=== PATIENT | male | born 1930 | race Caucasian/White ===

== ENCOUNTER 2017-07-29 10:15 | Inpatient (IN) | payer MEDICARE, MEDICAID ==
[2017-07-29] VITALS (18 sets, daily range): BP systolic 143–195; BP diastolic 78–109
[~2017-07-29] VITALS: Ht 172.7 cm; Wt 65.0 kg
--- NOTE | 2017-07-29 10:15 | NUR ---
BB CG VIA FAMILY CAR RT SIDED WEAKNESS SINCE YESTERDAY, NAD NOTED, VSS, BREATHING UNLABRED. EKG DONE, PUT ON HOSPITAL GOWN AND MONITOR IV OBTAIN, BLOOD SAMPLE SENT TO LAB MD AT BEDSIDE.
--- NOTE | 2017-07-29 10:20 | NUR ---
PT TO CTSCAN, XRAY
[2017-07-29] MEDS ORDERED: IOHEXOL-350 100 ML VIAL IV ONE ×2 (10:39→10:48)
[2017-07-29] MEDS ORDERED: IV NS 0.9% 250 ML IV ONE (10:39)
[2017-07-29] MEDS ORDERED: CT SWABBABLE VALVE TRANS SET 1 EA INFUS.SET MC ONE (10:39)
--- NOTE | 2017-07-29 10:43 | NUR ---
SPOKE WITH PATIENT'S DAUGHTER HELEN SHE STATES THAT THE LAST TIME SHE SAW HER FATHER WAS YESTEDAY AND GAVE PHONE NUMBER TO OLIMPIA MARQUIS [phone] OLIMPIA STATES THE LAST TIME HE WAS SEEN WELL WAS 1999 YESTERDAY
[2017-07-29 10:48] LABS: BASOPHILS # (AUTO) 0.1 /CMM (0.0-0.2); BASOPHILS % (AUTO) 0.8 % (0.0-2.0); EOSINOPHILS # (AUTO) 0.2 /CMM (0.0-0.7); EOSINOPHILS % (AUTO) 2.3 % (0.0-6.0); HEMATOCRIT 39 % (39-51); HEMOGLOBIN 12.9 g/dL (13.5-17.5); LYMPHOCYTES # (AUTO) 1.4 /CMM (0.8-4.8); LYMPHOCYTES % (AUTO) 15.1 % (20.0-44.0); MEAN CORPUSCULAR HEMOGLOBIN 30 PG (26.0-33.0); MEAN CORPUSCULAR HGB CONC 33 g/dl (31.0-36.0); MEAN CORPUSCULAR VOLUME 89 fL (80-96); MONOCYTES # (AUTO) 1.1 /CMM (0.1-1.30); MONOCYTES % (AUTO) 11.2 % (2.0-12.0); NEUTROPHILS # (AUTO) 6.7 /CMM (1.8-8.9); NEUTROPHILS % (AUTO) 70.6 % (43.0-81.0); PLATELET COUNT (AUTO) 189 /CMM (150-450); RDW COEFFICIENT OF VARIATION 14.6 (11.5-15.0); RED BLOOD CELL COUNT(AUTO) 4.35 MIL/uL (4.5-6.0); WHITE BLOOD COUNT (AUTO) 9.4 K/uL (4.3-11.0)
[2017-07-29 11:00] LABS: ALANINE AMINOTRANSFERASE 18 U/L (12-78); ALBUMIN 3.7 g/dL (3.4-5.0); ALKALINE PHOSPHATASE 103 U/L (46-116); ASPARTATE AMINOTRANSFERASE 13 U/L (15-37); BILIRUBIN,DIRECT 0.2 mg/dL (0.0-0.2); BILIRUBIN,TOTAL 1.1 mg/dL (0.2-1.0); CALCIUM, SERUM 8.8 mg/dL (8.5-10.1); CARBON DIOXIDE 26 mmol/L (21-32); CHLORIDE 103 mmol/L (98-107); CREATININE 1.5 mg/dL (0.6-1.3); GLUCOSE 111 mg/dL (74-106); POTASSIUM 3.8 mmol/L (3.5-5.1); SODIUM SERUM 137 mmol/L (136-145); TOTAL PROTEIN, SERUM 7.6 g/dL (6.4-8.2); UREA NITROGEN, BLOOD 14 mg/dL (7-18)
[2017-07-29 11:01] LABS: INR 0.98 (0.87-1.13); PROTHROMBIN TIME 10.2 SECS (9.5-12.7)
[2017-07-29 11:03] LABS: TROPONIN I < 0.017 ng/mL (0.00-0.056)
[2017-07-29] MEDS ORDERED: ASPIRIN EC 325 MG TABLET.DR PO ONE ×2 (11:30→11:32)
--- NOTE | 2017-07-29 11:38 | NUR ---
CALLED DR HOOKS ANSWERING SERVICE [phone], SPOKE WITH PAMELA SHE GAVE ME DR NICOLE CELL PHONE NUMBER , CALLED AND LEFT A VOICEMAIL.
--- NOTE | 2017-07-29 11:55 | NUR ---
CALLED DR WRIGHT, ON THE PHONE WITH DR VALENTINE.
--- NOTE | 2017-07-29 12:00 | NUR ---
REPORT [facility].
--- NOTE | 2017-07-29 13:36 | NUR ---
PT TRANSPORTED TO ICU USING ACLS PROTOCOL
[2017-07-29] MEDS: ASPIRIN EC 325 MG TABLET.DR PO SCH (14:00)
[2017-07-29] MEDS ORDERED: BLOOD SUGAR DIAGNOSTIC 1 EACH STRIP IN SCH (14:00)
--- NOTE | 2017-07-29 14:34 | NUR ---
WEALTH MANAGEMENT DIRECTOR NOTE 1400: Admitted 87 y/o M patient, awake alert to name only, Pashto speaking. Unable to give other health info at this time. No respiratory distress noted. Tolerated room air. No c/o pain or any discomfort at this time. Admitted in ICU for close monitoring for stroke. NIHSS done, noted with right upper arm mild weakness. Both legs are strong. RAC g20 PIV intact. Skin assessment done, intact. SR 70's on the monitor. SBP 150's now. Swallow eval done by nursing, no S/S aspiration noted and symmetrical face when smiling. 1430: BS 132. Spoke with daughter via phone and also does not know about health info for the patient.
[2017-07-29] MEDS: ENOXAPARIN SODIUM 30 MG/0.3 ML DISP.SYRIN SQ SCH (14:50)
[2017-07-29] MEDS: SIMVASTATIN 20 MG TABLET PO SCH ×2 (14:50→21:38)
[2017-07-29 14:54] LABS: CALCIUM, SERUM 8.8 mg/dL (8.5-10.1); CARBON DIOXIDE 28 mmol/L (21-32); CHLORIDE 104 mmol/L (98-107); CREATININE 1.4 mg/dL (0.6-1.3); GLUCOSE 121 mg/dL (74-106); POTASSIUM 3.3 mmol/L (3.5-5.1); SODIUM SERUM 138 mmol/L (136-145); UREA NITROGEN, BLOOD 14 mg/dL (7-18)
[2017-07-29 15:34] LABS: ALANINE AMINOTRANSFERASE 17 U/L (12-78); ALBUMIN 3.3 g/dL (3.4-5.0); ALKALINE PHOSPHATASE 93 U/L (46-116); ASPARTATE AMINOTRANSFERASE 12 U/L (15-37); B-TYPE NATRIURETIC PEPTIDE 459 PG/ML (0-125); BILIRUBIN,TOTAL 0.8 mg/dL (0.2-1.0); THYROID STIMULATING HORMONE 1.071 uIU/mL (0.358-3.74)
[2017-07-29] MEDS: BLOOD SUGAR DIAGNOSTIC 1 EACH STRIP IN SCH (17:32)
--- NOTE | 2017-07-29 17:42 | NUR ---
COBOL ENGINEER NOTE Spoke with Dr. Lucero to report Carotid duplex, K 3.3 and SBP 150's and DBP 100's. He said he will review the chart and will given order.
--- NOTE | 2017-07-29 18:48 | NUR ---
UPHOLSTERER INSIDE NOTE 1800: Melissa visited and given update re: patient. She was asking for the patient's wallet and said it is not listed on the belongings list and might be with the person who brought to hospital. She said she will call her. 184: Granddaughter came and also asked for wallet, tried to call the friend who brought him here but said she did not get his wallet. Clarified that patient admitted without his wallet here.
--- NOTE | 2017-07-29 19:00 | NUR ---
OPERATOR ASSISTANT I CEMENTING NOTE Still awaiting Dr. Lucero's order. SBP still high. Will endorse to next shift to follow up.
--- NOTE | 2017-07-29 19:30 | NUR ---
WINDER FIXER RCD PT ALERT; ORIENTED TO SELF; ABLE TO FOLLOW COMMANDS.BLE MILD WEAKNESS. BP 184/100 PER REPORT WAITING FOR DR LEROY TO CALL BACK WITH ORDERS. CONTINUE TO MONITOR.
--- NOTE | 2017-07-29 20:00 | NUR ---
STRATEGIC BUSINESS DEVELOPMENT BP 186/[address] LEROY; PLACED CALL TO EPIC AND RCD ORDERS. CONTINUE TO MONITOR.
--- NOTE | 2017-07-29 20:30 | NUR ---
SUPERVISOR ACCOUNTING CLERKS BP 174/97 NORVASC 10 MG PO GIVEN, CONTINUE TO MONITOR.
[2017-07-29] MEDS: AMLODIPINE BESYLATE 10 MG TABLET PO SCH (20:32)
[2017-07-30] VITALS (30 sets, daily range): BP systolic 139–176; BP diastolic 67–114
--- NOTE | 2017-07-30 | NUR ---
MANAGER MED SURG PT ATTEMPTS TO GET OUT OF BED WHEN HE NEEDS TO URINATE. EDUCATED PT TO STAY IN BED HE HAS DIAPER ON; ASSISTED PT WITH URINAL. SBP 150s. CONITNUE TO MONITOR. PT DENIES PAIN. REPOSITIONED. BED ALARM ON.
[2017-07-30] MEDS: BLOOD SUGAR DIAGNOSTIC 1 EACH STRIP IN SCH ×4 (00:10→18:24)
[2017-07-30 05:08] LABS: BASOPHILS % (AUTO) 0.5 % (0.0-2.0); EOSINOPHILS # (AUTO) 0.4 /CMM (0.0-0.7); EOSINOPHILS % (AUTO) 4.6 % (0.0-6.0); HEMATOCRIT 41 % (39-51); HEMOGLOBIN 13.6 g/dL (13.5-17.5); LYMPHOCYTES # (AUTO) 1.5 /CMM (0.8-4.8); MEAN CORPUSCULAR HEMOGLOBIN 30 PG (26.0-33.0); MEAN CORPUSCULAR HGB CONC 33 g/dl (31.0-36.0); MEAN CORPUSCULAR VOLUME 89 fL (80-96); MONOCYTES # (AUTO) 0.7 /CMM (0.1-1.30); MONOCYTES % (AUTO) 8.6 % (2.0-12.0); NEUTROPHILS # (AUTO) 5.8 /CMM (1.8-8.9); NEUTROPHILS % (AUTO) 68.3 % (43.0-81.0); PLATELET COUNT (AUTO) 181 /CMM (150-450); RDW COEFFICIENT OF VARIATION 14.7 (11.5-15.0); WHITE BLOOD COUNT (AUTO) 8.5 K/uL (4.3-11.0)
[2017-07-30 05:24] LABS: CALCIUM, SERUM 8.7 mg/dL (8.5-10.1); CARBON DIOXIDE 25 mmol/L (21-32); CHLORIDE 103 mmol/L (98-107); CREATININE 1.2 mg/dL (0.6-1.3); GLUCOSE 108 mg/dL (74-106); INR 0.97 (0.87-1.13); POTASSIUM 3.7 mmol/L (3.5-5.1); PROTHROMBIN TIME 10.1 SECS (9.5-12.7); SODIUM SERUM 138 mmol/L (136-145); UREA NITROGEN, BLOOD 13 mg/dL (7-18)
[2017-07-30 05:25] LABS: CHOLESTEROL 215 mg/dL (<200); HDL CHOLESTEROL 62 mg/dL (40-60); LDL 136 mg/dL (0-99); TRIGLYCERIDES 104 mg/dL (30-150)
--- NOTE | 2017-07-30 05:46 | NUR ---
TRADE RECRUITER PT WITH MULTIPLE ATTEMPTS TO GET OUT OF BED. BED ALARM ON. NURSING CONTINUES TO MONITOR.
[2017-07-30] MEDS: ASPIRIN EC 325 MG TABLET.DR PO SCH (08:13)
[2017-07-30] MEDS: AMLODIPINE BESYLATE 10 MG TABLET PO SCH (08:13)
[2017-07-30] MEDS: ENOXAPARIN SODIUM 30 MG/0.3 ML DISP.SYRIN SQ SCH (08:14)
--- NOTE | 2017-07-30 10:53 | NUR ---
TEXTED DR. STACY FOR MRI APPROVAL.
--- NOTE | 2017-07-30 11:16 | NUR ---
PRE FABRICATOR NOTE 1030: S/E by Dr. Lucero, Assessed patient while on chair. Still with AMY weakness, with order to may transfer to Tele and MRI and MRA brain/head,. Asked patient with assistant casino shift manager at bedside. for MRI questionnaire. 1115: Spoke with Harman(daughter) consented for MRI and MRA via phone, witnessed by another nurse.
--- NOTE | 2017-07-30 12:18 | NUR ---
BRIDGE CONSTRUCTION INSPECTOR NOTE S/E by Dr. Weathers, with order to change MRA to without contrast. Spoke with MRI personnel, said about 1pm.
[2017-07-30] MEDS: IV NS 0.9% 1,000 ML IV PRN (12:44)
--- NOTE | 2017-07-30 12:44 | NUR ---
DROP FORGE OPERATOR NOTE Per Dr. Weathers, [facility], made MD aware with episodes of SBP 170's, said it's ok to have high BP up to 200's. And also will start IVF.
--- NOTE | 2017-07-30 16:19 | NUR ---
COMMISSION AUDITOR NOTE 1340: Picked up by MRI personnels, accompanied by me to MRI. 1530: Patient back from MRI, no any significant changes noted.
--- NOTE | 2017-07-30 17:45 | NUR ---
CORONARY CLINICAL SPECIALIST NOTE Spoke again with daughter, but does not know about medical history. Patient does not take any meds at home, supposedly with appt today with MD outside.
[2017-07-30] MEDS ORDERED: GADOVERSETAMIDE 2.5 MMOL/5 ML VIAL IJ ONE (19:14)
--- NOTE | 2017-07-30 19:30 | NUR ---
CHUCK TENDER RCD PT AWAKE; ABLE TO FOLLOW SIMPLE COMMANDS. NSR ON MONITOR. ON ROON AIR. LFA 20 GW/ NS @ 75 ML/HR. PENDING MRI RESULTS.
--- NOTE | 2017-07-30 20:30 | NUR ---
ARMATURE REPAIRER PT HAS ATTEMPTED TO GET OUT OF BED MULTIPLE TIMES. PT HAS ATTEMPTED TO KICK STAFF. PT NOT PROPERLY ANSWERING QUESTIONS OR FOLLOWING INSTRUCTIONS ONLY REPEATS WHAT STAFF SAYS. BL SOFT WRIST RESTRAINTS PLACED FOR SAFETY. BED ALARM ON. NURSING AT BEDSIDE. CONTINUE TO MONITOR.
--- NOTE | 2017-07-30 20:40 | NUR ---
INDUSTRIAL CONTROLLER PT REMOVED BL SOFT WRIST RESTRAINTS. CONTINUE TO MONITOR.
--- NOTE | 2017-07-30 21:00 | NUR ---
ORGANISATION AND METHODS ANALYST PT CALM AND COOPERATIVE AT THIS TIME. CONTINUE TO MONITOR.
--- NOTE | 2017-07-30 21:20 | NUR ---
HYDROLOGY TECHNICIAN MRI BRAIN RESULTS RELAYED TO Papito JOHNS NP AND DR DIAZ; NO NEW ORDERS RECEIVED. 1. Several foci of acute/recent infarcts involving bilateral centrum semiovale and left porter radiata white matter. 2. No acute intracranial hemorrhage. No gross intracranial mass or enhancing abnormality. 3. Moderate chronic small vessel ischemic changes. 4. 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 5. Mild to moderate generalized cerebral volume loss. A call report was made and above findings were discussed and acknowledged by patient's nurse RN Sae on 07/30/2017 8:57 PM to relay to Dr. RAD Larry
[2017-07-30] MEDS: SIMVASTATIN 20 MG TABLET PO SCH (22:21)
[2017-07-31] VITALS (16 sets, daily range): BP systolic 125–177; BP diastolic 50–109
--- NOTE | 2017-07-31 | NUR ---
REVIEW RN PT CONTINUES TO ATTEMPT TO GET OUT BED AND REMOVE EQUIPMENT HOWEVER HE FOLLOWS COMMANDS TO STAY IN BED AND NOT REMOVE ANYTHING AT THIS TIME.
--- NOTE | 2017-07-31 01:00 | NUR ---
FISHER TRAWL NET PT SLEEPING AT THIS TIME.
--- NOTE | 2017-07-31 06:00 | NUR ---
MOLD MAINTENANCE TECHNICIAN PT CALM AND COOPERATIVE. FOLLOWS INSTRUCTIONS. BL SOFT WRIST RESTRAINTS PLACED. CONTINUE TO MONITOR.
[2017-07-31] MEDS: IV NS 0.9% 1,000 ML IV PRN (06:07)
[2017-07-31] MEDS: BLOOD SUGAR DIAGNOSTIC 1 EACH STRIP IN SCH ×4 (06:07→17:17)
[2017-07-31] MEDS: ASPIRIN EC 325 MG TABLET.DR PO SCH (08:27)
[2017-07-31] MEDS: ENOXAPARIN SODIUM 30 MG/0.3 ML DISP.SYRIN SQ SCH (08:30)
--- NOTE | 2017-07-31 09:10 | NUR ---
PUBLIC RELATIONS SUPERVISOR NOTE 0720: Received patient awake, alert but noted with confusion. Room air tolerated. With PIV intact, IVF infusing as ordered. Per previous nurse, with episode of combativeness last night, obtained order for 1:1 sitter. With sitter at bedside, calm at this time. Still noted with not full AROM on the right arm, Will continue PT, OT and ST. Still awaiting room for tele. 0830: Patient tolerated diet well. 0900: No any significant changes noted at this time. Will continue to monitor.
--- NOTE | 2017-07-31 15:14 | NUR ---
EDUCATION ADMINISTRATOR NOTE 1330: Transferred patient to Tele via wheelchair, with sitter. All belongings with the patient. No any significant changes. 1500: S/E by Dr. Stauffer, with order of JULIANE on Saturday, spoke with Harman, daughter given consent also for anesthesia, witnessed by another nurse.
--- NOTE | 2017-07-31 17:15 | NUR ---
NEUROSURGEON NOTE CN aware re: JULIANE on Saturday, spoke with nurse sup. Called Radiology and spoke with Riley, made aware technical stenographer needed for procedure on Saturday. will endorse to be NPO post midnight tomorrow.
--- NOTE | 2017-07-31 18:19 | NUR ---
DIRECTOR OF BRAND MARKETING NOTE S/E by Dr. Mathew, with order to do CT neck with contrast, Mishel visited and given consent. MD said he will call daughter to discuss plan of care.
[2017-07-31] MEDS ORDERED: SIMVASTATIN 20 MG TABLET ONE (19:57)
--- NOTE | 2017-07-31 20:00 | NUR ---
telecommunications linesworker notes received pts on bed awake and responsive , with confusion , on tele sr on the monitor , no sob no distress noted , v/s stable/ afebrile on r/a sating 98% on room air.on 1:1 sitter at bedside .all needs attended too call light within reach kept pts clean dry and comfortable , hob elevated at all times for aspiration precaution. turn and reposition q2 hrs and prn . will continue to monitor pts.
[2017-07-31] MEDS: SIMVASTATIN 20 MG TABLET PO SCH (21:17)
[2017-08-01] VITALS: BP 156/78
--- NOTE | 2017-08-01 | NUR ---
television technician notes pts npo post midnight maintained, remained on 1:1 sitter , pts sleeping in comfortably , continue on ivf of ns at 75cc/hr infusing well. v/s stable afebrile , pts for ct neck with contrast in am ,consent done,will continue to monitor pts.
[2017-08-01] MEDS: BLOOD SUGAR DIAGNOSTIC 1 EACH STRIP IN SCH ×5 (00:20→23:51)
[2017-08-01 04:00] VITALS: BP 148/72
[2017-08-01] MEDS: IV NS 0.9% 1,000 ML IV PRN ×2 (05:04→17:30)
--- NOTE | 2017-08-01 05:53 | NUR ---
tele rs notes pts for david on 08/02/17 at 8am npo post mn tonite consent for david and anesthesia obtained . will endorse to rn day shift for continuity of care.
--- NOTE | 2017-08-01 06:57 | NUR ---
telephone answering service operator notes blood sugar at 6am is 83 mg/dl no coverage given , pts remains on ivf ns at 75cc/hr infusing well . pts remains on npo and 1:1 sitter at bedside , will endorse to rn day shift for continuity of care.
--- NOTE | 2017-08-01 07:00 | NUR ---
PEST LOCATOR NOTE: RECEIVED PT AWAKE IN BED, VIETNAMESE SPEAKING, A&OX1 WITH CONFUSION, DENIES PAIN, ABLE TO FOLLOW SIMPLE COMMANDS. ON TELE MONITOR WITH SR IN THE HIGH 60S. ON RA, RESPIRATIONS EVEN AND UNLABORED WITH NO SOB NOTED. YESSI IV RUNNING WITH NS AT 75CC/HR. BED LOW, LOCKED WITH CALL LIGHT WITHIN REACH. 1:1 CARE WITH PATIENT FOR SAFETY. WILL CONT TO MONITOR.
[2017-08-01 08:00] VITALS: BP 149/82
--- NOTE | 2017-08-01 10:25 | NUR ---
MANAGEMENT SPECIALIST NOTE: DAUGHTER CALLED AND PROVIDED PHONE NUMBER: [phone].
--- NOTE | 2017-08-01 10:38 | NUR ---
CYLINDRICAL MIXER NOTE: STROKE EDUCATION PACKET PROVIDED TO PATIENT.
[2017-08-01 12:00] VITALS: BP 155/75
--- NOTE | 2017-08-01 12:05 | NUR ---
HATCH SUPERVISOR NOTE: MESSAGE LEFT FOR DR. VINES TO RETURN CALL TO CLARIFY ORDER PER RADIOLOGY REQUEST. DR. VINES'S OFFICE: [phone].
--- NOTE | 2017-08-01 12:35 | NUR ---
NEED CLARIFICATION OF ORDER . NURSE TO CALL DR FRANKIE GIRON IF ORDER IS A CTA SINCE THE AOI ARE THE CAROTOIDS, OR REG VENOUS CT OF [facility].
--- NOTE | 2017-08-01 13:41 | NUR ---
DRUGLESS DOCTOR NOTE: ORDER CLARIFIED PER CHARGE NURSE SOON. NEW ORDER FOR CTA CAROTID SUBMITTED. LEFT MESSAGE WITH CT EXT 0112 TO CONFIRM.
[2017-08-01] MEDS ORDERED: IOHEXOL-350 100 ML VIAL IV ONE (13:56)
[2017-08-01] MEDS ORDERED: CT SWABBABLE VALVE TRANS SET 1 EA INFUS.SET MC ONE (13:56)
[2017-08-01] MEDS: ASPIRIN EC 325 MG TABLET.DR PO SCH (15:02)
[2017-08-01] MEDS: ENOXAPARIN SODIUM 30 MG/0.3 ML DISP.SYRIN SQ SCH (15:05)
[2017-08-01 16:00] VITALS: BP_SYST 155; BP_SYST 156; BP_DIAS 98
--- NOTE | 2017-08-01 18:30 | NUR ---
RIPSAW MATCHER NOTE: NO ACUTE CHANGES DURING SHIFT. PATIENT REMAINED A&OX1 WITH CONFUSION. YESSI IV PATENT AND INTACT WITH NS RUNNING AT 75CC/HR. TELE MONITOR SR IN THE 80S. 1:1 SITTER AT BEDSIDE FOR SAFETY. ORDERS CARRIED OUT. BED LOW, LOCKED WITH CALL LIGHT WITHIN REACH. WILL ENDORSE TO EMERGENCY MANAGEMENT SYSTEM DIRECTOR NURSE FOR JUDSON.
[2017-08-01 20:00] VITALS: BP 146/84
--- NOTE | 2017-08-01 20:38 | NUR ---
TELE INITIAL RN NOTE: RECEIVED PT FROM AM SHIFT,NO ACUTE CHANGES DURING SHIFT. PATIENT REMAINED A&OX1 WITH CONFUSION. YESSI IV PATENT AND INTACT WITH NS RUNNING AT 75CC/HR. TELE MONITOR SR IN THE 80S. 1:1 SITTER, STAYED BY PT BED SIDE BECAUSE SITTER RUNNING LATE, FOR SAFETY. ALL NEEDS MET AT THIS TIME. BED LOW, LOCKED WITH CALL LIGHT WITHIN REACH. WILL ENDORSE TO GEOLOGIST PETROLEUM NURSE FOR JUDSON.
[2017-08-01] MEDS: SIMVASTATIN 20 MG TABLET PO SCH (22:22)
[2017-08-02] VITALS: BP 140/80
[2017-08-02 05:04] VITALS: BP 145/82
[2017-08-02] MEDS: BLOOD SUGAR DIAGNOSTIC 1 EACH STRIP IN SCH ×3 (05:09→17:21)
--- NOTE | 2017-08-02 06:37 | NUR ---
TELE CLOSING RN NOTE: ENDORSED PT TO AM SHIFT,NO ACUTE CHANGES DURING SHIFT. PATIENT REMAINED A&OX1 WITH CONFUSION. YESSI IV PATENT AND INTACT WITH NS RUNNING AT 75CC/HR. NPO AFTER MIDNIGHT EXCEPT MEDS, JULIANE SCHEDULED IN AM, CONSENT IN CHART WELL CHECK LIST COMPLETED TELE MONITOR SR IN THE 80S. 1:1 SITTER, STAYED BY PT BED SIDE BECAUSE SITTER RUNNING LATE, FOR SAFETY. ALL NEEDS MET AT THIS TIME. BED LOW, LOCKED WITH CALL LIGHT WITHIN REACH. WILL ENDORSE TO TRAVEL ACCOMMODATIONS RATER NURSE FOR JUDSON.
--- NOTE | 2017-08-02 07:20 | NUR ---
COREMAKER PIPE OPENING NOTES RECEIVED PT FROM NIGHTSHIFT NURSE IN STABLE CONDITION. PT IS A/O X1-2 AND CONFUSED. NO SOB OR SIGNS OF DISTRESS NOTED. BREATHING IS EVEN AND UNLABORED. PT DENIES ANY PAIN AT THIS TIME. PT MADE AWARE OF PLANNED JULIANE PROCEDURE. CONSENTS IN CHART AND CHECKLIST COMPLETED BY NIGHTSHIFT NURSE. PT IS SINUS RHYTHM ON THE TELE MONITOR. IV PRESENT ON LEFT UPPER ARM 20G INFUSING NS @75ML/HR. PT IS TOLERATING INFUSION WELL. NO REDNESS OR SIGNS OF INFILTRATION NOTED. BED IN LOW LOCKED POSITION, SIDE RAILS UP X3, CALL LIGHT WITHIN REACH, BED ALARM ON, SITTER AT BEDSIDE. WILL CONTINUE TO MONITOR .
[2017-08-02 08:00] VITALS: BP 156/77
--- NOTE | 2017-08-02 09:03 | NUR ---
MEASUREMENT TECHNICIAN NOTES PER DR KOROMA, IT IS OKAY TO GIVE THE PT SCHEDULED 0900 LOVENOX AFTER JULIANE PROCEDURE
[2017-08-02] MEDS: IV NS 0.9% 1,000 ML IV PRN (09:10)
[2017-08-02] MEDS: ASPIRIN EC 325 MG TABLET.DR PO SCH (09:11)
[2017-08-02] MEDS: ENOXAPARIN SODIUM 30 MG/0.3 ML DISP.SYRIN SQ SCH (09:11)
[2017-08-02 12:00] VITALS: BP 137/85
[2017-08-02 16:00] VITALS: BP 130/78
--- NOTE | 2017-08-02 18:45 | NUR ---
MS R CLOSING NOTES PT REMAINS IN STABLE CONDITION. ALL NEEDS MET DURING SHIFT AND ORDERS CARRIED OUT ACCORDINGLY. ALL DUE NEEDS GIVEN. ALL SAFETY MEASURES REMAIN IN PLACE. SITTER AT BEDSIDE. WILL ENDORSE TO NIGHTSHIFT NURSE FOR JUDSON
[2017-08-02 20:00] VITALS: BP 139/79
--- NOTE | 2017-08-02 20:00 | NUR ---
RN NOTES PATIENT IN BED RESTING COMFORTABLY WITH 0NE ON ONE SITTER. NO DISTRESS NOTED. BREATHING EVEN AND UNLABORED AWAKE, ALRT AND RESPONSIVE.NO COMPLAINT OF PAIN OF THIS TIME. KEPT CLEAN AND DRY. WILL CONTINUE TO ENDORSE.
[2017-08-02] MEDS: SIMVASTATIN 20 MG TABLET PO SCH (22:23)
[2017-08-03] VITALS: BP 144/85
[2017-08-03] MEDS: BLOOD SUGAR DIAGNOSTIC 1 EACH STRIP IN SCH ×4 (00:21→18:33)
[2017-08-03] MEDS: IV NS 0.9% 1,000 ML IV PRN (00:28)
[2017-08-03 04:00] VITALS: BP 152/82
--- NOTE | 2017-08-03 07:34 | NUR ---
RN CLOSING NOTES IN BED, RESTING COMFORTABLE. NO RESPIRATORY DISTRESS OR SHORTNESS OF BREATH. BREATHING EVEN AND UNLABORED. NEEDS ATTENDED. NO SIGNIFICANT CHANGE OF CONDITION. WILL ENDORSE TO AM SHIFT FOR CONTINUITY OF CARE
[2017-08-03 08:00] VITALS: BP 160/94
--- NOTE | 2017-08-03 08:20 | NUR ---
RN OPENING NOTES RECEIVED PATIENT RESTING COMFORTABLY IN BED WITH EYES CLOSED. EASILY AROUSABLE. AOX1. SITTER AT THE BED SIDE FOR SAFETY. NO ACUTE DISTRESS. RESPIRATIONS EVEN AND UNLABORED. DENIES ANY PAIN, SOB AND CP. BED LOCKED IN THE LOWEST POSITION WITH SIDE RAIL UP X2. CALL LIGHT WITHIN REACH. WILL CONTINUE TO MONITOR, ASSESS AND EDUCATE PATIENT THROUGHOUT SHIFT.
[2017-08-03] MEDS: ASPIRIN EC 325 MG TABLET.DR PO SCH (10:12)
[2017-08-03] MEDS: ENOXAPARIN SODIUM 30 MG/0.3 ML DISP.SYRIN SQ SCH (10:13)
[2017-08-03 13:00] VITALS: BP 138/76
[2017-08-03 16:00] VITALS: BP 141/80
--- NOTE | 2017-08-03 19:40 | NUR ---
RN CLOSING NOTES PATIENT RESTING COMFORTABLY IN BED. AOX1. SITTER AT THE BED SIDE FOR SAFETY. NO ACUTE DISTRESS. RESPIRATIONS EVEN AND UNLABORED. DENIES ANY PAIN, SOB AND CP. CONDITION UNCHANGED. ALL NEEDS MET. ALL MEDS GIVEN ASS APPROPRIATE. ENDORSED TO NIGHT RN FOR JUDSON.
[2017-08-03 20:00] VITALS: BP_SYST 103; BP_SYST 146; BP_DIAS 68; BP_DIAS 94
--- NOTE | 2017-08-03 20:00 | NUR ---
RN NOTES RECEIVED PATIENT IN BED, AWAKE WITH SITTER AT BEDSIDE. NO RESPIRATORY DISTRESS OR SHORTNESS OF BREATH. BREATHING AND UNLABORED. ALERT AND ORIENTED, VERBALLY ABLE TO COMMUNICATE NEEDS. RIGHT FEMORAL CENTRAL LINE IN PLACE, PATENT. NS 75ML/HR TOLERATING WELL. FC PATENT AND INTACT DRAINING CLEAR, YELLOW WITH NO FOUL ODOR URINE. WILL CONTINUE TO MONITOR.
[2017-08-03] MEDS: SIMVASTATIN 20 MG TABLET PO SCH (23:00)
[2017-08-04] MEDS: BLOOD SUGAR DIAGNOSTIC 1 EACH STRIP IN SCH ×5 (00:33→23:33)
[2017-08-04] MEDS: IV NS 0.9% 1,000 ML IV PRN (03:57)
[2017-08-04 04:00] VITALS: BP 152/83
--- NOTE | 2017-08-04 06:44 | NUR ---
RN CLOSING NOTES PATIENT IN BED WITH RESPIRATORY DISTRESS NOTED. BREATHING EVEN UNLABORED. NO COMPLAINT OF PAIN OR DISCOMFORT. NO SIGNIFICANT CHANGE OF CONDITION AT THIS TIME. WILL ENDORSE TO AM SHIFT FOR CONTINUITY OF CARE.
[2017-08-04 07:31] LABS: BASOPHILS # (AUTO) 0.1 /CMM (0.0-0.2); BASOPHILS % (AUTO) 0.6 % (0.0-2.0); EOSINOPHILS # (AUTO) 0.4 /CMM (0.0-0.7); EOSINOPHILS % (AUTO) 4.8 % (0.0-6.0); HEMATOCRIT 38 % (39-51); HEMOGLOBIN 12.8 g/dL (13.5-17.5); LYMPHOCYTES # (AUTO) 1.5 /CMM (0.8-4.8); MEAN CORPUSCULAR HEMOGLOBIN 30 PG (26.0-33.0); MEAN CORPUSCULAR HGB CONC 34 g/dl (31.0-36.0); MEAN CORPUSCULAR VOLUME 88 fL (80-96); MONOCYTES # (AUTO) 1.1 /CMM (0.1-1.30); NEUTROPHILS # (AUTO) 5.8 /CMM (1.8-8.9); NEUTROPHILS % (AUTO) 65.6 % (43.0-81.0); PLATELET COUNT (AUTO) 200 /CMM (150-450); RED BLOOD CELL COUNT(AUTO) 4.28 MIL/uL (4.5-6.0); WHITE BLOOD COUNT (AUTO) 8.9 K/uL (4.3-11.0)
[2017-08-04 07:44] LABS: CALCIUM, SERUM 8.6 mg/dL (8.5-10.1); CARBON DIOXIDE 25 mmol/L (21-32); CHLORIDE 105 mmol/L (98-107); CREATININE 1.2 mg/dL (0.6-1.3); GLUCOSE 92 mg/dL (74-106); PHOSPHORUS 3.2 mg/dL (2.5-4.9); POTASSIUM 4.1 mmol/L (3.5-5.1); SODIUM SERUM 140 mmol/L (136-145); UREA NITROGEN, BLOOD 18 mg/dL (7-18)
[2017-08-04 08:00] VITALS: BP 147/80
[2017-08-04] MEDS: ASPIRIN EC 325 MG TABLET.DR PO SCH (11:16)
[2017-08-04] MEDS: ENOXAPARIN SODIUM 30 MG/0.3 ML DISP.SYRIN SQ SCH (11:31)
[2017-08-04 16:00] VITALS: BP 161/94
--- NOTE | 2017-08-04 19:30 | NUR ---
Received patient in the bed.No unusual signs or symptoms observed or reported,no signs of discomfort or distress.Sitter at bedside;patient is said to be fall precaution.No problems.Scheduled for a procedure in AM.Ordered NPO after NOC with NS to be started at 75 cc/hr.
[2017-08-04 20:00] VITALS: BP 156/89
[2017-08-04] MEDS: SIMVASTATIN 20 MG TABLET PO SCH (22:24)
[2017-08-05] VITALS (22 sets, daily range): BP systolic 148–206; BP diastolic 77–125
--- NOTE | 2017-08-05 | NUR ---
Patient is now NPO and IVF started,no problems
--- NOTE | 2017-08-05 04:10 | NUR ---
Relieved sitter for a few minutes break,no problems
--- NOTE | 2017-08-05 04:40 | NUR ---
Patient became agitated,pulled out his iv and left room for hallway with MILK OF LIME SLAKER walking beside patient.Put him in a wheelchair and have him sit in-front of nurse's station.Patient is calm for now.
[2017-08-05 04:57] LABS: APPEARANCE,URINE CLEAR (CLEAR); BILIRUBIN,URINE NEGATIVE (NEGATIVE); BLOOD, URINE NEGATIVE Ery/uL (NEGATIVE); KETONES,URINE NEGATIVE (NEGATIVE); LEUKOCYTE ESTERASE ,URINE NEGATIVE (NEGATIVE); NITRITE, URINE NEGATIVE (NEGATIVE); PH,URINE 6.5 (5.0-8.0); PROTEIN,URINE NEGATIVE (NEGATIVE); UGLUCOSE NEGATIVE (NEGATIVE); UROBILINOGEN,URINE 0.2 EU/dL (0.2)
[2017-08-05 04:58] LABS: COLOR,URINE Light yellow (YELLOW)
[2017-08-05] MEDS: BLOOD SUGAR DIAGNOSTIC 1 EACH STRIP IN SCH ×3 (06:00→18:18)
[2017-08-05 06:39] LABS: BASOPHILS % (AUTO) 0.5 % (0.0-2.0); EOSINOPHILS # (AUTO) 0.3 /CMM (0.0-0.7); EOSINOPHILS % (AUTO) 3.6 % (0.0-6.0); HEMATOCRIT 43 % (39-51); HEMOGLOBIN 14.2 g/dL (13.5-17.5); LYMPHOCYTES # (AUTO) 1.2 /CMM (0.8-4.8); LYMPHOCYTES % (AUTO) 14.2 % (20.0-44.0); MEAN CORPUSCULAR HEMOGLOBIN 30 PG (26.0-33.0); MEAN CORPUSCULAR HGB CONC 33 g/dl (31.0-36.0); MEAN CORPUSCULAR VOLUME 89 fL (80-96); MONOCYTES # (AUTO) 0.9 /CMM (0.1-1.30); MONOCYTES % (AUTO) 10.5 % (2.0-12.0); NEUTROPHILS # (AUTO) 6.2 /CMM (1.8-8.9); NEUTROPHILS % (AUTO) 71.2 % (43.0-81.0); PLATELET COUNT (AUTO) 245 /CMM (150-450); RDW COEFFICIENT OF VARIATION 14.1 (11.5-15.0); RED BLOOD CELL COUNT(AUTO) 4.79 MIL/uL (4.5-6.0); WHITE BLOOD COUNT (AUTO) 8.7 K/uL (4.3-11.0)
--- NOTE | 2017-08-05 07:01 | NUR ---
BS 107
[2017-08-05 07:02] LABS: CALCIUM, SERUM 9.2 mg/dL (8.5-10.1); CARBON DIOXIDE 30 mmol/L (21-32); CHLORIDE 102 mmol/L (98-107); CREATININE 1.4 mg/dL (0.6-1.3); GLUCOSE 109 mg/dL (74-106); MAGNESIUM 1.9 mg/dL (1.8-2.4); PHOSPHORUS 3.2 mg/dL (2.5-4.9); SODIUM SERUM 139 mmol/L (136-145); UREA NITROGEN, BLOOD 20 mg/dL (7-18)
[2017-08-05 07:10] LABS: INR 0.96 (0.87-1.13)
[2017-08-05] MEDS: ASPIRIN EC 325 MG TABLET.DR PO SCH (08:41)
[2017-08-05] MEDS: ENOXAPARIN SODIUM 30 MG/0.3 ML DISP.SYRIN SQ SCH (08:46)
[2017-08-05] MEDS ORDERED: ROCURONIUM BROMIDE 50 MG/5 ML ONE (10:59)
[2017-08-05] MEDS ORDERED: FENTANYL PF 100MCG/2ML AMPUL ONE ×2 (10:59→12:02)
[2017-08-05] MEDS ORDERED: SEVOFLURANE 250 ML BOTTLE IH ONE (11:07)
[2017-08-05] MEDS ORDERED: DESFLURANE 240 ML BOTTLE IH ONE (11:07)
--- NOTE | 2017-08-05 11:15 | NUR ---
RN NOTE PT OUT FOR SURGERY.
[2017-08-05] MEDS ORDERED: LIDOCAINE 1% INJ 50 ML MDV IJ ONE (11:59)
[2017-08-05] MEDS ORDERED: HEPARIN SODIUM, PORCINE 1,000 UNIT/ML VIAL ONE (12:20)
[2017-08-05] MEDS ORDERED: GELATIN SPONGE,ABSORBABLE 1 EA SPONGE TP ONE (13:08)
[2017-08-05] MEDS ORDERED: THROMBIN (BOVINE) 5,000 UNITS VIAL TP ONE (13:08)
[2017-08-05] MEDS ORDERED: CELLULOSE,OXIDIZED 1 PKT EACH MC ONE (13:48)
[2017-08-05] MEDS ORDERED: BUPIVACAINE 0.25% 75 MG/30 ML VIAL ONE (14:44)
[2017-08-05] MEDS: MORPHINE SULFATE INJ 2 MG/ML DISP.SYRIN IM PRN ×2 (15:29→19:40)
[2017-08-05] MEDS: IV NS 0.9% 1,000 ML IV PRN (16:05)
[2017-08-05] MEDS ORDERED: hydrALAZINE HCL IV 20 MG VIAL IV PRN (17:00)
[2017-08-05] MEDS: CARVEDILOL 6.25 MG TABLET PO SCH (17:42)
[2017-08-05] MEDS ORDERED: NITROGLYCERIN 0.4 MG/TAB BOTTLE SL PRN (20:00)
--- NOTE | 2017-08-05 21:00 | NUR ---
DR VINES AT BEDSIDE TO ASSESS PT, THERE IS SWELLING AT THE NECK SITE, DR VINES SAYS PLACE ICE PACK ON NECK
[2017-08-05] MEDS: SIMVASTATIN 20 MG TABLET PO SCH (21:54)
[2017-08-06] VITALS (27 sets, daily range): BP systolic 112–166; BP diastolic 59–95
[2017-08-06] MEDS: BLOOD SUGAR DIAGNOSTIC 1 EACH STRIP IN SCH ×4 (00:35→18:43)
[2017-08-06 05:04] LABS: HEMATOCRIT 39 % (39-51); HEMOGLOBIN 12.8 g/dL (13.5-17.5); LYMPHOCYTES # (AUTO) 0.8 /CMM (0.8-4.8); LYMPHOCYTES % (AUTO) 5.2 % (20.0-44.0); MEAN CORPUSCULAR HEMOGLOBIN 30 PG (26.0-33.0); MEAN CORPUSCULAR HGB CONC 33 g/dl (31.0-36.0); MEAN CORPUSCULAR VOLUME 90 fL (80-96); MONOCYTES # (AUTO) 0.9 /CMM (0.1-1.30); NEUTROPHILS # (AUTO) 12.9 /CMM (1.8-8.9); NEUTROPHILS % (AUTO) 88.8 % (43.0-81.0); PLATELET COUNT (AUTO) 264 /CMM (150-450); RDW COEFFICIENT OF VARIATION 14.2 (11.5-15.0); RED BLOOD CELL COUNT(AUTO) 4.33 MIL/uL (4.5-6.0); WHITE BLOOD COUNT (AUTO) 14.6 K/uL (4.3-11.0)
[2017-08-06 05:23] LABS: CALCIUM, SERUM 8.7 mg/dL (8.5-10.1); CARBON DIOXIDE 21 mmol/L (21-32); CHLORIDE 105 mmol/L (98-107); CREATININE 1.4 mg/dL (0.6-1.3); GLUCOSE 136 mg/dL (74-106); PHOSPHORUS 3.9 mg/dL (2.5-4.9); POTASSIUM 4.7 mmol/L (3.5-5.1); SODIUM SERUM 138 mmol/L (136-145); UREA NITROGEN, BLOOD 25 mg/dL (7-18)
--- NOTE | 2017-08-06 07:05 | NUR ---
RN INITIAL NOTES RECEIVED PT ASLEEP, EASY TO AROUSE. ON ROOM AIR. 02 SAT 96%. NO RESPIRATORY DISTRESS NOTED. NO SIGNS OF PAIN NOTED. IV LINE IN PLACE. FC IN PLACE. NO HEMATURIA NOTED. BLE ELEVATED. CALL LIGHT WITHIN REACH. ON 1:1 SITTER. PT COMFORTABLE. WILL MONITOR.
[2017-08-06] MEDS: ASPIRIN EC 325 MG TABLET.DR PO SCH (08:13)
[2017-08-06] MEDS: CARVEDILOL 6.25 MG TABLET PO SCH (08:14)
[2017-08-06] MEDS: ENOXAPARIN SODIUM 30 MG/0.3 ML DISP.SYRIN SQ SCH (08:17)
[2017-08-06] MEDS: IV NS 0.9% 1,000 ML IV PRN ×2 (09:46→22:29)
--- NOTE | 2017-08-06 10:45 | NUR ---
RN NOTES SEEN AND EXAMINED BY DR. DRAKE MARTIN. AWARE OF CURRENT LAB VALUES: WBC 14.6, HGB 12.8, HCT 39, PLATELET 264, BUN 25, CREA 1.4. SP LEFT CAROTID ENDARTERECTOMY BY DR. VINES 08/05/17. MARIKA DRAIN IN PLACE, SEROUS DRAINAGE NOTED. DENIES ANY PAIN. NO CHANGE IN LOC NOTED. MD CONLEY TO TRANSFER PT TO TELE. SMYTH (DTR) AWARE.
[2017-08-06] MEDS ORDERED: hydrALAZINE HCL 25 MG TABLET PO PRN (16:30)
--- NOTE | 2017-08-06 16:30 | NUR ---
RN NOTES PT TRANSFERRED TO ROOM 304-2. PT IN STABLE CONDITION. REPORT GIVEN TO CHRISTAL ALEXIS. TOOL OVER PT'S CARE.
--- NOTE | 2017-08-06 17:00 | NUR ---
RN NOTE RECEIVED PATIENT A/O X1/2, INDONESIAN SPEAKER, NO RESPIRATORY DISTRESS, LEFT SIDE OF NECK DRESSING AND MARIKA, PT ON F/C DRAIN YELLOW OUTPUT, PATIENT TURN AND REPOSTION SELF IN THE BED, V/S TAKEN BP -123/73, P-73, R-17, O2 97 ROOM AIR, T-97.6, 1;1 SITTER NEXT TO THE PATIENT FOR SAFETY, SKIN INTACT, SAFETY PRECAUTION MAINTAINED ALL THE TIME.
--- NOTE | 2017-08-06 18:30 | NUR ---
RN NOTE PATIENT STABLE AT THIS TIME, FAMILY NEXT TO THE PATIENT, BS-136 MG/DL, NO ACUTE DISTRESS, NEEDS ATTENDED AND ANTICIPATED, CALL LIGHT WITHIN THE PATIENT, SAFETY PRECAUTION MAINTAINED ALL THE TIME. ENDORSED ONCOMING NURSE FOR CONTINUATION OF CARE.
[2017-08-06] MEDS: CARVEDILOL 12.5 MG TABLET PO SCH (18:51)
--- NOTE | 2017-08-06 20:30 | NUR ---
saw pt and pulled out fatou drain from left neck ,neck slightly swollen ,but md says its normal and expected, pt has good desk monitor ,denies any numbness,no tingling.will continue to monitor,sinus rhythm on monitor.
[2017-08-06] MEDS ORDERED: ATORVASTATIN 40 MG TABLET PO SCH (22:00)
[2017-08-07 00:04] VITALS: BP 119/67
[2017-08-07] MEDS: BLOOD SUGAR DIAGNOSTIC 1 EACH STRIP IN SCH ×3 (00:25→12:51)
[2017-08-07 04:00] VITALS: BP 154/83
--- NOTE | 2017-08-07 06:00 | NUR ---
s/p Carotid Endarterectomy thru left neck, Dr. Mathew d/cd the fatou drain last night, pressure dressing intact. no bleeding noted, slightly swollen but remains the same. denies any pain or discomfort overnight, sleep intermittently, bernal intact and draining well, assisted to bathroom but no bm but passes gas.continue with if fluids ,vss,afebrile.
[2017-08-07 06:25] VITALS: BP 154/83
[2017-08-07 06:35] LABS: BASOPHILS % (AUTO) 0.3 % (0.0-2.0); EOSINOPHILS # (AUTO) 0.1 /CMM (0.0-0.7); EOSINOPHILS % (AUTO) 0.8 % (0.0-6.0); HEMATOCRIT 33 % (39-51); HEMOGLOBIN 11.1 g/dL (13.5-17.5); MEAN CORPUSCULAR HEMOGLOBIN 30 PG (26.0-33.0); MEAN CORPUSCULAR HGB CONC 34 g/dl (31.0-36.0); MEAN CORPUSCULAR VOLUME 90 fL (80-96); MONOCYTES # (AUTO) 1.2 /CMM (0.1-1.30); MONOCYTES % (AUTO) 10.7 % (2.0-12.0); NEUTROPHILS # (AUTO) 8.3 /CMM (1.8-8.9); NEUTROPHILS % (AUTO) 71.2 % (43.0-81.0); PLATELET COUNT (AUTO) 214 /CMM (150-450); RDW COEFFICIENT OF VARIATION 14.3 (11.5-15.0); RED BLOOD CELL COUNT(AUTO) 3.68 MIL/uL (4.5-6.0); WHITE BLOOD COUNT (AUTO) 11.6 K/uL (4.3-11.0)
[2017-08-07 06:45] LABS: CALCIUM, SERUM 8.2 mg/dL (8.5-10.1); CARBON DIOXIDE 25 mmol/L (21-32); CHLORIDE 109 mmol/L (98-107); CREATININE 1.2 mg/dL (0.6-1.3); GLUCOSE 104 mg/dL (74-106); MAGNESIUM 1.9 mg/dL (1.8-2.4); PHOSPHORUS 2.4 mg/dL (2.5-4.9); POTASSIUM 4.1 mmol/L (3.5-5.1); SODIUM SERUM 142 mmol/L (136-145); UREA NITROGEN, BLOOD 25 mg/dL (7-18)
--- NOTE | 2017-08-07 07:10 | NUR ---
HOUSEKEEPING ROOM INSPECTOR NOTES PATIENT ALERT AND ORIENTED X2, NO DISTRESS NOTED, DENIES PAIN OR DISCOMFORT AT THIS TIME, SITTER AT BEDSIDE, PIV PATENT AND INTACT, FLUSHES WELL, NEEDS ATTENDED AND MET, CALL LIGHT WITHIN REACH, WILL CONTINUE TO MONITOR.
[2017-08-07] MEDS ORDERED: ASPIRIN EC 81 MG TABLET.DR PO SCH (09:00)
[2017-08-07 09:16] VITALS: BP 166/79
[2017-08-07] MEDS: CARVEDILOL 12.5 MG TABLET PO SCH (09:16)
[2017-08-07] MEDS: ENOXAPARIN SODIUM 30 MG/0.3 ML DISP.SYRIN SQ SCH (09:21)
[2017-08-07] MEDS ORDERED: FLU VACC QS 2017-18(36MOS+)/PF 0.5 ML DISP.SYRIN IM ONE (12:30)
--- NOTE | 2017-08-07 12:58 | NUR ---
RN MS NOTES PATIENT HAS AN ORDER FOR DISCHARGE, RECEIVED PRESCRIPTION FOR ASA AND LIPITOR, PER FAMILY PATIENT REFUSED TO GO TO ARU, AND WOULD LIKE HOME HEALTH SERVICE TO CONTINUE WITH PT AND OT. OFFERED FLU VACCINE AND PATIENT AND DAUGHTER LIBRA GAVE CONSENT. ADMINISTERED ON RIGHT DELTOID. PATIENT IS IN NO DISTRESS, WAITING FOR DAUGHTER TO GIVE DISCHARGE INSTRUCTIONS.
--- NOTE | 2017-08-07 13:50 | NUR ---
ORDER CHECKER PACKER PROCESSER NOTE PATIENT'S DAUGHTER LIBRA CAME AND DISCHARGE INSTRUCTIONS PROVIDED, PRESCRIPTION INCLUDED, STROKE EDUCATION PROVIDED INCLUDING S/SX OF STROKE, DIET AND EXERCISE MAINTENANCE, FAMILY AND PATIENT VERBALIZED UNDERSTANDING. PATIENT IS IN NO DISTRESS, SKIN INTACT EXCEPT FOR LEFT NECK INCISION, PHOTO TAKEN, INFORMED FAMILY GERARD MAKE AN APPT WITH DR. VINES IN 10 DAYS AND HIS PRIMARY CARE PHYSICIAN. PIV REMOVED, REILLY REMOVED THIS AM, AND PATIENT WAS ABLE TO VOID IN A URINAL AFTER. BELONGINGS RECONCILED AND COMPLETED, ALL NEEDS ATTENDED AND MET, DISCHARGE TO HOME WITH HOME HEALTH ARRANGED BY CASE MANAGEMENT, TRANSPORTED VIA PRIVATE CAR.
== END 2017-08-07 13:45 | disposition home health service (06) | DRG 37 ==
LOC: ER 10:17 → ICU 13:26 → TELE1 07-31 13:15 → MEDSG1 08-03 02:57 → ICU 08-05 14:48 → TELE 08-06 16:18 → MED 08-07 08:36
PROVIDERS: ADMIT Internal Medicine; ATTEND Internal Medicine
PROC: 03UL0JZ Supplement Left Internal Carotid Artery with Synthetic Substitute, Open Approach (ICD-10-PCS; 2017-08-05)
PROC: 03CL0ZZ Extirpation of Matter from Left Internal Carotid Artery, Open Approach (ICD-10-PCS; principal; 2017-08-05 12:30)
DX: I63.133 Cerebral infarction due to embolism of bilateral carotid arteries (principal); I21.4 Non-ST elevation (NSTEMI) myocardial infarction; N17.0 Acute kidney failure with tubular necrosis; G93.1 Anoxic brain damage, not elsewhere classified; G81.91 Hemiplegia, unspecified affecting right dominant side; R29.723 NIHSS score 23; E78.5 Hyperlipidemia, unspecified; E87.6 Hypokalemia; I10 Essential (primary) hypertension; I25.10 Atherosclerotic heart disease of native coronary artery without angina pectoris; Z86.73 Personal history of transient ischemic attack (TIA), and cerebral infarction without residual deficits; R47.01 Aphasia; I34.0 Nonrheumatic mitral (valve) insufficiency; I35.1 Nonrheumatic aortic (valve) insufficiency; I67.2 Cerebral atherosclerosis
CPT/HCPCS: 36415; 70450-TC; 70492; 70496-TC; 70498-TC; 70553-TC; 71010-TC; 80048-TC; 80053-TC; 80061-TC; 80076-TC; 80305; 81000-TC; 82962-TC; 83735-TC; 83880; 84100-TC; 84443-TC; 84484-TC; 85025-TC; 85652-TC; 85730-TC; 86592; 86850-TC; 86921-TC; 87081-TC; 88304-TC; 88305-TC; 88311-TC; 92507-TC; 92521; 92611-TC; 93307-TC; 93312-TC; 93880-TC; 97110-TC; 97116-TC; 97530-TC; 97535-TC; A4606; A6209; A6402; A9579; C1769; J0360; J0690; J1100; J1644; J1650; J2270; J2370; J2405; J2704; J2710; J3010; J3490; J7030; J7050; Q2036; Q9967; Z7610